=== PATIENT | female | born 1935 | race Caucasian/White ===

== ENCOUNTER 2017-06-04 12:15 | Inpatient (IN) | payer MEDICARE ==
[~2017-06-04] VITALS: Ht 172.7 cm; Wt 102.2 kg
--- NOTE | ~2017-06-04 | CO ---
Unit #: [id number] #: [id number] Patient: SCOTT MEJIA [id number] [facility]. [place], [place] [address] [id number] I MR#: [id number] NAME: SCOTT MEJIA. ROOM: 563 Age: 81 Sex: F Admission Date: 06/04/2017 : 1935 Attending Physician: Samson Mederos M.D. Primary Care Physician: Martina Garay M.D. CONSULTATION REPORT We were asked to see her by Dr. Guzman for pneumonia. HISTORY OF PRESENT ILLNESS Ms. Mejia is an 81-year-old female seen by me in the past with pneumonia, who now presents with shaking chills which occurred 3 days ago and again today. She developed a cough with actually blood today. Interestingly, she did complain of a left-sided chest pain either today or yesterday. She says that she woke up with shaking chills 3 days ago, felt better yesterday and then worse again today. She has very little smoking history. 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 We did PFTs in our office in 04/2014 and this was consistent with restriction. FEV1 of 1.2, 51% predicted, FVC 1.27, 41% predicted, ratio of the two is 95%. She did a video swallow back in 12/2014 and at that time, it was suggested that she use honey thick liquids and chin tilt. There was no thought at that time that she could not eat at all. It is also notable that she had a shot for pneumonia in 2012. 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 She has had a right lower lobe granuloma, history of multinodular goiter, history of lung nodule, diabetic retinopathy, depression, anxiety. 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 MEDICATIONS On admission had included azilsartan/chlorthalidone 40-12.5 daily, Klonopin 1 mg b.i.d., Mobic 15 mg daily, Toprol-XL 200 mg p.o. daily, Protonix 40 mg p.o. daily, potassium chloride 10 mEq daily, Prozac 40 mg daily, Lipitor 40 mg daily, Symbicort 160/4.5 two puffs b.i.d., Aricept 5 mg daily. ALLERGIES Pentazocine, sulfa, codeine. SOCIAL HISTORY She smoked only briefly when she was younger, almost a social type smoker only when she would go out. Unit #: [id number] #: [id number] Patient: SCOTT MEJIA FAMILY HISTORY Significant probably for lung disease in her father; although, he of stroke. SYSTEMS REVIEW She has occasional nausea. No vomiting. No diarrhea. No leg swelling. Denies skin complaints. All other systems are negative except as mentioned. PHYSICAL EXAMINATION GENERAL: She presents as an elderly female, in no acute distress. VITAL SIGNS: T-max 103 which is noted here, repeat 99.3; pulse 67; respirations 14; blood pressure 123/47. NECK: Without adenopathy. LUNGS: Reveals that her breathing is not labored. She does have a little bit of inspiratory rhonchi at right side. HEART: Irregular. ABDOMEN: Soft and bowel sounds are present. EXTREMITIES: Without edema. NEUROLOGIC: She is awake and alert. DIAGNOSTIC STUDIES LABORATORY RESULTS: Her white blood cell count is 11.2, H and H of 12.5 and 38, 163,000 platelets. BMP; BUN of 31, creatinine 1.3. Her lactic acid was only 0.9. IMAGING STUDIES: Chest x-ray to my exam reveals a nodular infiltrate midlung. This is a portable film and therefore it is really hard to say where it is. I would say it is in the right middle lobe, but there could also be some in the right upper lobe and the right lower lobe. IMPRESSION 1. Right pneumonia. I would most likely figure this is aspiration. She has choked on a piece of corn, but not in a while. Given her neck issues, she certainly is at risk and as mentioned, she has had video swallows in the past. 2. Some concern with the left-sided chest pain, but looking at her x-ray and her temperature, I think this is indeed pneumonia. 3. Hemoptysis. 4. Diabetes. 5. She does not fulfill criteria for sepsis. 6. Dysphagia. PLAN She is on Zosyn and Zithromax and I agree. We will need to be alert for any other signs of pulmonary embolism, but it is said most of the symptoms do a deep point to a pneumonia. It is notable that at one point that was back in 2013, she was on Pradaxa, but she does not seem to be on any significant anticoagulation now. Thank you very much for allowing me to participate in the care of this patient. Dictated by... Bell Moreno/joanna Unit #: [id number] #: [id number] Patient: SCOTT MEJIA Sury TD: 06/05/2017 13:57 JOB #: [id number] CONSULTATION REPORT Page 1 of 1 X Moise Mckeon MD CONSULTATION REPORT
--- NOTE | ~2017-06-04 | DS ---
Unit #: [id number] #: [id number] Patient: SCOTT MEJIA [id number] [place], [place] [address] [id number] I MR#: [id number] NAME: SCOTT MEJIA. ROOM: 563 Age: 81 Sex: F Admission Date: 06/04/2017 : 1935 Discharge Date: 06/07/2017 Attending Physician: Samson Mederos M.D. Primary Care Physician: Martina Garay M.D. DISCHARGE SUMMARY REASON FOR ADMISSION Hemoptysis. HISTORY OF PRESENT ILLNESS/HOSPITAL COURSE The patient is a very pleasant 81-year-old female with an underlying history of hypertension, diabetes, COPD, atrial fibrillation not on chronic anticoagulation secondary to chronic deconditioning and/or frequent falls, who presented secondary to hemoptysis. She underwent a chest x-ray in the emergency room, which showed dense infiltrates in the right middle and lower lobe. Subsequently, she was admitted secondary to multifocal pneumonia. Routinely, she is followed by Dr. Aisha Gordon of pulmonary services and therefore we placed consultation to Pulmonary. They continued to follow the patient through her hospital course. She underwent routine laboratory studies including a D-dimer, which did come back elevated at 1359 secondary to elevated creatinine. This prompted an ultrasound of her lower extremities as well as a V/Q scan. Ultrasound of lower extremity did not reveal any occult DVT. V/Q scan initial read was read as low probability. She was appropriately placed on IV antibiotics while here. Her blood cultures were otherwise unremarkable through hospital course. Today, at time of discharge, her white count currently stands at 6.3, hemoglobin of 11.4. At rest, she requires approximately 2 L of O2, which is her baseline and approximately 3 L with ambulation, which again is her baseline. At the present time, the patient is clinically stable for discharge home. At time of discharge, her creatinine is currently 0.9 with a GFR of 59.6. Her Mobic will be discontinued at time of discharge. It is requested that she continue taking Tylenol on a p.r.n. basis for arthritis. Moving forward, she was advised to avoid nephrotoxic medications. Her blood pressure medication regimen has been altered appropriately secondary to avoid renal insufficiency. Please see below for appropriate changes. She will be given a prescription for Augmentin 875 mg p.o. b.i.d. x10 days at time of discharge, and she has been instructed to follow up with Dr. Gordon as an outpatient in approximately 2 to 3 weeks. Also note, speech therapy services were consulted secondary to concern for aspiration as well as chronic deconditioning and prior history of Unit #: [id number] #: [id number] Patient: SCOTT MEJIA dementia. They did recommend current diet; however, they did recommend crushing medications in applesauce or nectar with double swallow and clear throat as needed during swallowing mechanism. From their standpoint, the patient was cleared for diet. Discussion as well as plans were reviewed with the patient. She expressed understanding and agreement. She will be discharged home in stable condition. She has been instructed to follow up with her PCP in approximately 7 days. FINAL DISCHARGE DIAGNOSES 1. Multifocal pneumonia. 2. Hemoptysis with no episodes while here in the hospital. 3. Anxiety/depression. 4. Benign essential tremor. 5. History of atrial fibrillation, not on chronic anticoagulation. 6. Dementia. 7. Hyperlipidemia. 8. Acute kidney injury on admission, likely on chronic kidney disease, stage 3. 9. Prior history of gastroesophageal reflux disease. 10. 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 The patient uses walker at home. DISCHARGE MEDICATIONS Symbicort 160/4.5 two puffs b.i.d.; Tylenol 650 mg p.o. q.6 p.r.n.; Prozac 40 mg p.o. daily; Mirapex 0.5 mg p.o. q.a.m., new medication started this hospital admission secondary to benign essential tremor; Klonopin 1 mg p.o. b.i.d.; Toprol-XL 200 mg p.o. daily; Aricept 5 mg p.o. q.h.s.; Lipitor 40 mg p.o. q.h.s.; Protonix 40 mg p.o. daily; Klor-Con 10 mEq p.o. daily; Norvasc 5 mg p.o. daily; Augmentin 875 mg p.o. b.i.d. x10 days. DISCHARGE CONDITION Stable. DISCHARGE DISPOSITION Home. Dictated by... Bell Astudillo/alysal TD: 06/09/2017 03:22 JOB #: [id number] DISCHARGE SUMMARY Page 1 of 1 X Samson Mederos MD DISCHARGE SUMMARY
--- NOTE | ~2017-06-04 | NM69 ---
[facility] A Service [facility] RADIOLOGY TEXT RESULTS PATIENT: SCOTT MEJIA LOCATION: [facility] 563- : 34 UNIT #: [id number] AGE: [address]: Samson Mederos MD SEX: F ORDER DR: [id number] [facility] [address] [place], [place] [address] [id number] I MR#: [id number] Acc #: [id number] NAME: SCOTT MEJIA. : 1935 SEX: F STUDY DATE/TIME: 06/05/2017 12:23 UNIT: [facility] ROOM: [facility] STUDY DESCRIPTION: NM Pulm Vent and Perf Attending Physician: Samson Mederos M.D. Ordering Physician: Samson Mederos M.D. Primary Care Physician: Martina Garay M.D. MEDICAL IMAGING REPORT This report is preliminary unless electronic signature is present EXAM Ventilation-perfusion scan. INDICATIONS Shortness of air for 1 week. Elevated D-dimer. COPD. COMPARISON Chest radiograph, 06/05/2017. FINDINGS 31.6 mCi telecommunications technician 99m DTPA was inhaled for the ventilation portion of the examination. There is patchy distribution of radiotracer throughout both lungs consistent with a history of COPD. 5.7 mCi of technetium-99m MAA was injected IV per protocol for the perfusion portion of the examination. There is matched defects within the perfusion images with the associated ventilation images. There is no ventilation-perfusion mismatch to indicate a pulmonary embolus. IMPRESSION 1. Low probability ventilation-perfusion scan for pulmonary embolus. 2. COPD. Dictated by... Simón Carias M.D. THIS IS AN ELECTRONICALLY VERIFIED REPORT Simón Carias M.D. at 06/08/2017 11:42 AM DENILSON/kacie TD: 06/07/2017 19:25 JOB #: [id number] [facility] A Service [facility] RADIOLOGY TEXT RESULTS PATIENT: SCOTT MEJIA LOCATION: [facility] 563-01 : 34 UNIT #: [id number] AGE: [address]: Samson Mederos MD SEX: F ORDER DR: MEDICAL IMAGING REPORT Page 1 of 1 COPY
--- NOTE | ~2017-06-04 | EKG ---
PATIENT: SOCTT MEJIA UNIT #: [id number] Ventricular Rate: 59 BPM Atrial Rate: 326 BPM QRS Duration: 108 ms Q-T Interval: 474 ms QTC Calculation(Bezet): 469 ms Calculated R [place]: 92 degrees Calculated T [place]: 93 degrees Diagnosis Line: Atrial fibrillation with slow ventricular response Diagnosis Line: Rightward axis Diagnosis Line: Nonspecific ST abnormality , probably digitalis Diagnosis Line: effect Diagnosis Line: Abnormal ECG Diagnosis Line: When compared with ECG of 04-JUN-2017 12:41, Diagnosis Line: (unconfirmed) Diagnosis Line: Nonspecific T wave abnormality no longer evident Diagnosis Line: in Inferior leads Diagnosis Line: Nonspecific T wave abnormality, improved in Diagnosis Line: Anterolateral leads Diagnosis Line: QT has lengthened Diagnosis Line: Confirmed by ARELIS BLACKMON MD ([id number]) on 06/06/2017 Diagnosis Line: 11:04:23 PM INTERPRETING MD: NEYMAR COUCH
--- NOTE | ~2017-06-04 | CR72 ---
[facility] A Service of [facility] RADIOLOGY TEXT RESULTS PATIENT: SCOTT MEJIA LOCATION: [place] [address] : 34 UNIT #: [id number] AGE: [address]: Samson Mederos MD SEX: F ORDER DR: [id number] [facility] [address] [place], [place] [address] [id number] I MR#: [id number] Acc #: [id number] NAME: SCOTT MEJIA. : 1935 SEX: F STUDY DATE/TIME: 06/04/2017 13:07 UNIT: [facility] ROOM: 264[address] STUDY DESCRIPTION: CR Chest Single View Portable Attending Physician: Landon Guzman M.D. Ordering Physician: Clarence Dalal D.O. Primary Care Physician: Martina Garay M.D. MEDICAL IMAGING REPORT This report is preliminary unless electronic signature is present EXAM Chest, portable; 06/04/2017, 1307 hours. CLINICAL HISTORY 81-year-old woman with 2-day history of fever, new onset of shortness of air and coughing up blood today. History of diabetes. COMPARISON 02/25/2017 FINDINGS Portable upright chest demonstrates stable mild cardiomegaly and tortuous aorta. There is diffuse airspace change in the right midlung right lung base new from the prior study likely pneumonia. Question patchy density at the left base. No effusions seen. IMPRESSION There is new, diffuse airspace change in the right midlung right lung base likely pneumonia. Question patchy left retrocardiac density which could represent multifocal pneumonia. There is no definite adenopathy or pleural effusion. Followup chest radiographs post-treatment to complete resolution is recommended. Dictated by... Jesi Pickard M.D. THIS IS AN ELECTRONICALLY VERIFIED REPORT Jesi Pickard M.D. at 06/05/2017 5:21 PM GREG/kacie TD: 06/04/2017 16:25 JOB #: [id number] [facility] A Service of [facility] & [facility] RADIOLOGY TEXT RESULTS PATIENT: SCOTT MEJIA LOCATION: [place] [address] : 34 UNIT #: [id number] AGE: [address]: Samson Mederos MD SEX: F ORDER DR: MEDICAL IMAGING REPORT Page 1 of 1 COPY
--- NOTE | ~2017-06-04 | US84 ---
[id number] [facility] [address] [place], [place] [address] [id number] MR#: [id number] Acc #: [id number] NAME: SCOTT MEJIA : 1935 SEX: F STUDY DATE/TIME: 06/05/2017 10:05 UNIT: [facility] ROOM: 563 STUDY DESCRIPTION: US LE Veins Complete Jaime Stdy Attending Physician: Samson Mederos M.D. Ordering Physician: Moise Mckeon M.D. Primary Care Physician: Martina Garay M.D. MEDICAL IMAGING REPORT This report is preliminary unless electronic signature is present EXAM Bilateral lower extremity venous duplex Doppler INDICATIONS Elevated D-dimer. Shortness of air for 2 days. COMPARISON None available. TECHNIQUE Venous ultrasound examination of both lower extremities was performed using grayscale, spectral Doppler and color flow Doppler imaging. FINDINGS The examination is negative. There is no evidence of deep venous thrombus from the groin to the lower calf bilaterally. Visualized greater saphenous veins are also patent. IMPRESSION Negative examination. No evidence of lower extremity deep venous thrombosis. Dictated by... Simón Carias M.D. THIS IS AN ELECTRONICALLY VERIFIED REPORT Simón Carias M.D. at 06/06/2017 1:24 PM DENILSON/esperanza TD: 06/06/2017 04:09 JOB #: [id number] MEDICAL IMAGING REPORT Page 1 of 1 COPY
--- NOTE | ~2017-06-04 | HP ---
Unit #: [id number] #: [id number] Patient: SCOTT MEJIA [id number] [address] [place], [place] [address] [id number] I MR#: [id number] NAME: SCOTT MEJIA. ROOM: 83[address] Age: 81 Sex: F Admission Date: 06/04/2017 : 1935 Attending Physician: Fannie Guzman M.D. Primary Care Physician: Martina Garay M.D. HISTORY AND PHYSICAL CHIEF COMPLAINT Chief complaint is coughing up blood. HISTORY OF PRESENT ILLNESS The patient is an 81-year-old female with a past medical history of atrial fibrillation not on chronic anticoagulation, diabetes, hypertension, chronic respiratory failure and possibly COPD, brought to the emergency room complaining of the coughing up blood. The patient stated the patient woke up earlier this morning and was shivering with the chills associated with the coughing. The patient was choking on the secretion and started coughing. The patient was coughing up blood and that made her to come to the hospital. Patient stated the patient has been feeling sick for the last few days and was feeling better yesterday but however today coughing up blood that made her to come to the emergency room. The patient had a chest x-ray done in the emergency room and that showed diffuse dense infiltrate in the right middle and lower lobe and left retrocardiac region concerning for multifocal pneumonia and is being admitted for the above reasons. PAST MEDICAL HISTORY History of a intractable nausea and vomiting, atrial fibrillation not on chronic anticoagulation, history of transient ischemic attack, diabetes, hypertension, tremors, right lower lobe nodule, goiter, adenopathy, depression and anxiety, chronic respiratory failure on 3 L per nasal cannula home oxygen and COPD and cognitive impairment. PAST SURGICAL HISTORY Excision of tumors bilaterally internal jugular vein, a cholecystectomy, left arm surgery, EGD. SOCIAL HISTORY The patient lives with her son. There is no tobacco, alcohol or any illicit drug abuse. FAMILY HISTORY Family history positive for vascular tumor and coronary artery disease. ALLERGIES Allergic to lactate, sulfa, codeine, pentazocine. HOME MEDICATIONS Patient is on chlorthalidone and Klonopin, Mobic, metoprolol, Protonix, Klor, Prozac, Lipitor, Symbicort, Aricept. Unit #: [id number] #: [id number] Patient: SCOTT MEJIA REVIEW OF SYMPTOMS Positive for nausea and vomiting. Positive for fever. Positive for chills. Denies any chest pain. Denies any headache and denies any dizziness and all other systems have been reviewed and are negative except as mentioned in the HPI. PHYSICAL EXAMINATION GENERAL APPEARANCE: On examination the patient is lying on a bed not in acute distress. VITAL SIGNS: Temperature 103, pulse 85, respiratory rate 18, blood pressure 125/68, sating 94% at 2 L of nasal cannula. HEAD: Atraumatic/normocephalic. HEENT: Pupils equal, round and reacting to light and accommodation. Extraocular movements are intact. Dry mucous membrane. NECK: Supple. LUNGS: Positive for rhonchi and decreased air entry at the bases. HEART: Irregular rate and rhythm. ABDOMEN: Soft, positive bowel sound. EXTREMITIES: No cyanosis. No clubbing. NEURO: Alert, awake, oriented. PSYCH: Mood and affect are appropriate. DIAGNOSTIC STUDIES LAB DATA: UA shows negative nitrites, negative leukocyte esterase. BNP is 287 and sodium 138, potassium 3.6, chloride 95, bicarb 33, glucose 161, BUN 31, creatinine 1.3, calcium 9.5, AST 20, ALT 17, alkaline phosphatase 77, albumin 4.1, lactic acid is 1, WBC 11.2, hemoglobin 12.5, hematocrit 38.5, platelets 163, INR is 1, troponin less than 0.05. IMAGING: And the chest x-ray shows right middle and lower lobe dense infiltrate and retrocardiac infiltrate concerning for multifocal pneumonia. CARDIOVASCULAR: And the EKG shows atrial fibrillation at a rate of 83 beats per minute. ASSESSMENT AND PLAN 1. Multifocal pneumonia. 2. Hemoptysis. 3. Sepsis. 4. Diabetes mellitus. Plan to admit the patient to the inpatient. Patient will continue with the IV antibiotics, continue with the sepsis protocol and check the CT of the chest and continue with the swallowing evaluation and do barium swallow to rule out the aspiration and continue with the antibiotics with a Zithromax and Zosyn and will have the pulmonary consult with Dr. Mckeon and further recommendations will follow as more lab results are available. Dictated by Bell Ortega TD: 06/04/2017 17:21 JOB #: [id number] Unit #: [id number] #: [id number] Patient: SCOTT MEJIA HISTORY AND PHYSICAL Page 1 of 1 X FANNIE GUZMAN MD HISTORY AND PHYSICAL
--- NOTE | ~2017-06-04 | CR63 ---
[facility] A Service of [facility] RADIOLOGY TEXT RESULTS PATIENT: SCOTT MEJIA LOCATION: [facility] 563-01 : 34 UNIT #: [id number] AGE: [address]: Samson Mederos MD SEX: F ORDER DR: [id number] [facility] [address] [place], [place] [address] [id number] I MR#: [id number] Acc #: [id number] NAME: SCOTT MEJIA. : 1935 SEX: F STUDY DATE/TIME: 06/05/2017 9:54 UNIT: [facility] ROOM: [facility] STUDY DESCRIPTION: CR Chest 2 View Attending Physician: Samson Mederos M.D. Ordering Physician: Moise Mckeon M.D. Primary Care Physician: Martina Garay M.D. MEDICAL IMAGING REPORT This report is preliminary unless electronic signature is present EXAM 2-view chest INDICATIONS Pneumonia. Shortness of air and cough for 4 days. FINDINGS PA and lateral views of the chest compared to 06/04/2017. The heart is enlarged. Right perihilar airspace opacities similar to the prior study. There is background COPD. No new pulmonary opacities. No pneumothorax. IMPRESSION No interval change Dictated by... Simón Carias M.D. THIS IS AN ELECTRONICALLY VERIFIED REPORT Simón Carias M.D. at 06/06/2017 1:24 PM RPC/rnr TD: 06/06/2017 03:51 JOB #: [id number] MEDICAL IMAGING REPORT Page 1 of 1 COPY
--- NOTE | ~2017-06-04 | EKG ---
PATIENT: SCOTT MEJIA UNIT #: [id number] Ventricular Rate: 83 BPM Atrial Rate: 202 BPM QRS Duration: 100 ms Q-T Interval: 352 ms QTC Calculation(Bezet): 413 ms Calculated R Williams: 68 degrees Calculated T Williams: 174 degrees Diagnosis Line: Atrial fibrillation Diagnosis Line: Nonspecific ST and T wave abnormality Diagnosis Line: Abnormal ECG Diagnosis Line: When compared with ECG of 30-AUG-2014 08:58, Diagnosis Line: ST now depressed in Anterior leads Diagnosis Line: Nonspecific T wave abnormality now evident in Diagnosis Line: Anterior leads Diagnosis Line: Confirmed by DEVON ABEBE MD ([id number]) on 06/09/2017 Diagnosis Line: 7:36:19 AM INTERPRETING MD: ANDRAE COUCH
[~2017-06-04 12:15] MED LIST: ACETAMINOPHEN PO; ALPRAZOLAM PO; ALTACE PO; ALTACE10 MG PO; ANTARA PO; ARICEPT PO; ARICEPT5 MG PO; ASPIRIN PO; ASPIRIN81 M2 PO; ASPIRIN81 MG PO; ATIVAN0.5 MG PO; AUGMENTIN875 MG PO; AVALIDE 300-12.1 TAB PO; CLONIDINE HCL0.1 MG PO; COLACE PO; CRESTOR; CRESTOR PO; CRESTOR10 MG PO; DEXALANT PO; DEXFOL PO; DIOVAN PO; EFFEXOR; EFFEXOR XR PO; EFFEXOR XR150 MG PO; ENABLEX15 MG PO; INDERAL LA PO; INDERAL20 MG PO; INNOPRAN XL PO; JANUMET 50-501 UDTAB PO; K-DUR10 MEQ PO; KCL PO; KLONOPIN PO; LASIX PO; LORAZEPAM0.5 MG PO; METFORMIN PO; MOBIC PO; MOBIC15 MG PO; NEURONTIN PO; NEURONTIN300 MG PO; PRADAXA150 MG PO; PROTONIX PO; PROZAC PO; TENORMIN25 M1 PO; TOPROL XL PO; TRIBENZOR 40-11 EAC1 PO; TRIBENZOR 40-51 EAC1 PO; VALTREX PO; VESICARE PO; VICODIN 5/1 TAB 5/50 PO; VITAMIN D31000 UNI1 PO; ZOCOR PO; ZOFRAN ODT4 MG DOB; [UNRECOGNIZED DRUG - OTHER]; [UNRECOGNIZED DRUG - OTHER] PO
[2017-06-04 13:45] LABS: BASOPHIL% 0.4 % (0-2.5); EOSINOPHIL# 0.1 X10e3 (0-0.7); EOSINOPHIL% 0.9 % (0.0-7.0); HEMATOCRIT 38.5 % (35.0-45.0); HEMOGLOBIN 12.5 gm/dL (12.0-16.0); LYMPHOCYTE# 0.5 X10e3 (1.0-3.5); LYMPHOCYTE% 4.3 % (17.0-45.0); MEAN CELL VOLUME 84.7 FL (83-96); MEAN CORPUSCULAR HEMOGLOBIN 27.6 PG (28-34); MEAN CORPUSCULAR HGB CONC 32.6 g/dL (30-36); MEAN PLATELET VOLUME 7.6 FL (6.5-11.5); MONOCYTE# 0.8 X10e3 (0-1.0); MONOCYTE% 6.8 % (3.0-12.0); NEUTROPHIL# 9.8 X10e3 (1.5-7.1); NEUTROPHIL% 87.6 % (40-75); PLATELET COUNT 163 X10e3 (140-420); RED BLOOD COUNT 4.54 X10e (3.90-5.30); RED CELL DISTRIBUTION WIDTH 14.5 % (11.0-15.5); WHITE BLOOD COUNT 11.2 X10e3 (4.0-10.5)
[2017-06-04 13:52] LABS: POC - CKMB 2.6 ng/mL (0.0-7.9); POC - TROPONIN <0.05 ng/mL (<=0.05)
[2017-06-04 13:56] LABS: PARTIAL THROMBOPLASTIN TIME 25.7 SECONDS (23.5-31.3); PROTHROMBIN TIME (PATIENT) 10.9 SECONDS (10.0-11.7)
[2017-06-04 14:01] LABS: DIFF IND NO
[2017-06-04 14:17] LABS: ALBUMIN SERUM 4.1 g/dL (3.5-5.0); BILIRUBIN, DIRECT 0.3 mg/dL (0.0-0.2); BILIRUBIN,INDIRECT 0.6 mg/dL (0.0-0.9); BILIRUBIN,TOTAL 0.9 mg/dL (0.2-2.0); BUN/CREATININE RATIO 23.84; CALCIUM SERUM 9.5 mg/dL (8.4-10.2); CREATININE SERUM 1.3 mg/dL (0.6-1.4); GLOM FILT RATE Estimated 38.2 mL/min (>60); POTASSIUM 3.6 mmol/L (3.5-5.1); PROTEIN TOTAL SERUM 7.3 g/dL (6.0-8.3)
[2017-06-04 14:31] LABS: URINE SOURCE CLEAN CATCH
[2017-06-04 14:35] LABS: URINE APPEARANCE CLEAR; URINE BILIRUBIN NEG (NEG); URINE BLOOD NEG (NEG); URINE COLOR YELLOW; URINE GLUCOSE NEG (NEG); URINE KETONE NEG (NEG); URINE LEUKOCYTE ESTERASE NEG (NEG); URINE NITRATE NEG (NEG); URINE PROTEIN NEG (NEG); URINE SPECIFIC GRAVITY 1.018 (1.003-1.035); URINE UROBILINOGEN 0.2 MG/DL (NEG)
[2017-06-04 14:40] LABS: CULTURE INDICATED? NO
[2017-06-04] MEDS ORDERED: PATIENT'S PHARMACY (14:49)
[2017-06-04] MEDS ORDERED: MOBIC PO (14:50)
[2017-06-04] MEDS ORDERED: METOPROLOL SUC200 MG PO (14:50)
[2017-06-04] MEDS ORDERED: PROTONIX PO (14:50)
[2017-06-04] MEDS ORDERED: KCL PO (14:50)
[2017-06-04] MEDS ORDERED: EDARBYCLOR 40-1 EACH PO (14:50)
[2017-06-04] MEDS ORDERED: KLONOPIN1 MG PO (14:50)
[2017-06-04] MEDS ORDERED: ARICEPT5 MG PO (15:12)
[2017-06-04] MEDS ORDERED: SYMBICORT INH (15:12)
[2017-06-04] MEDS ORDERED: PROZAC40 M1 PO (15:12)
[2017-06-04] MEDS ORDERED: LIPITOR40 MG PO (15:12)
[2017-06-04 16:22] LABS: POC - CKMB 1.3 ng/mL (0.0-7.9); POC - TROPONIN <0.05 ng/mL (<=0.05)
[2017-06-05 04:23] LABS: ARTERIAL BLOOD GAS CARBOXY HB 1.4 %sat (0.0-9.0); ARTERIAL BLOOD GAS HCO3 35.1 mmol/L; ARTERIAL BLOOD GAS MET HB 0.7 %sat (0.0-2.0); ARTERIAL BLOOD GAS pH 7.401 (7.350-7.450)
[2017-06-05 04:41] LABS: ARTERIAL BLOOD GAS PCO2 56.7 mmHg (35.0-45.0); ARTERIAL BLOOD GAS PO2 63.2 mmHg (80.0-100)
[2017-06-05 04:42] LABS: ARTERIAL BLOOD GAS ALLEN TEST NORMAL; ARTERIAL BLOOD GAS ART SITE LEFT RADIAL; ARTERIAL BLOOD GAS DELIVERY NASAL CANNULA; ARTERIAL DRAW? YES
[2017-06-05 05:20] LABS: BASOPHIL% 0.3 % (0-2.5); EOSINOPHIL# 0.2 X10e3 (0-0.7); EOSINOPHIL% 1.5 % (0.0-7.0); HEMATOCRIT 34.6 % (35.0-45.0); HEMOGLOBIN 11.6 gm/dL (12.0-16.0); LYMPHOCYTE% 9.3 % (17.0-45.0); MEAN CORPUSCULAR HEMOGLOBIN 28.3 PG (28-34); MEAN CORPUSCULAR HGB CONC 33.7 g/dL (30-36); MEAN PLATELET VOLUME 7.9 FL (6.5-11.5); MONOCYTE# 0.8 X10e3 (0-1.0); MONOCYTE% 8.1 % (3.0-12.0); NEUTROPHIL# 8.3 X10e3 (1.5-7.1); NEUTROPHIL% 80.8 % (40-75); PLATELET COUNT 143 X10e3 (140-420); RED BLOOD COUNT 4.11 X10e (3.90-5.30); RED CELL DISTRIBUTION WIDTH 14.1 % (11.0-15.5); WHITE BLOOD COUNT 10.3 X10e3 (4.0-10.5)
[2017-06-05 05:25] LABS: DIFF IND NO
[2017-06-05 05:41] LABS: BUN/CREATININE RATIO 23.63; CREATININE SERUM 1.1 mg/dL (0.6-1.4); GLOM FILT RATE Estimated 46.7 mL/min (>60); POTASSIUM 3.3 mmol/L (3.5-5.1)
[2017-06-06 05:22] LABS: HEMATOCRIT 33.8 % (35.0-45.0); HEMOGLOBIN 11.4 gm/dL (12.0-16.0); MEAN CELL VOLUME 84.6 FL (83-96); MEAN CORPUSCULAR HEMOGLOBIN 28.6 PG (28-34); MEAN CORPUSCULAR HGB CONC 33.8 g/dL (30-36); MEAN PLATELET VOLUME 7.9 FL (6.5-11.5); RED CELL DISTRIBUTION WIDTH 14.4 % (11.0-15.5); WHITE BLOOD COUNT 7.1 X10e3 (4.0-10.5)
[2017-06-06 06:31] LABS: BUN/CREATININE RATIO 18.18; CALCIUM SERUM 9.1 mg/dL (8.4-10.2); CREATININE SERUM 1.1 mg/dL (0.6-1.4); GLOM FILT RATE Estimated 46.7 mL/min (>60); POTASSIUM 3.5 mmol/L (3.5-5.1)
[2017-06-07 06:38] LABS: HEMATOCRIT 34.4 % (35.0-45.0); HEMOGLOBIN 11.4 gm/dL (12.0-16.0); MEAN CELL VOLUME 84.6 FL (83-96); MEAN CORPUSCULAR HGB CONC 33.1 g/dL (30-36); MEAN PLATELET VOLUME 7.7 FL (6.5-11.5); RED BLOOD COUNT 4.07 X10e (3.90-5.30); RED CELL DISTRIBUTION WIDTH 13.9 % (11.0-15.5); WHITE BLOOD COUNT 6.3 X10e3 (4.0-10.5)
[2017-06-07 07:15] LABS: BUN/CREATININE RATIO 17.77; CALCIUM SERUM 9.2 mg/dL (8.4-10.2); CREATININE SERUM 0.9 mg/dL (0.6-1.4); GLOM FILT RATE Estimated 59.6 mL/min (>60); POTASSIUM 3.7 mmol/L (3.5-5.1)
[2017-06-07] MEDS ORDERED: MIRAPEX PO (09:28)
[2017-06-07] MEDS ORDERED: NORVASC PO (09:30)
[2017-06-07] MEDS ORDERED: AUGMENTIN PO (09:31)
== END 2017-06-07 15:33 | disposition home health service (06) | DRG 177 ==
LOC: CED 12:15 → CEDOF 15:50 → CED 16:22 → CEDOF 16:22 → C5C 18:59
PROVIDERS: Emergency Medicine; Family Medicine; Internal Medicine; Internal Medicine Pulmonary Disease
DX: J69.0 Pneumonitis due to inhalation of food and vomit (principal); J96.22 Acute and chronic respiratory failure with hypercapnia; J96.21 Acute and chronic respiratory failure with hypoxia; N17.9 Acute kidney failure, unspecified; R04.2 Hemoptysis; E11.22 Type 2 diabetes mellitus with diabetic chronic kidney disease; R13.10 Dysphagia, unspecified; I48.2 Chronic atrial fibrillation; I10 Essential (primary) hypertension; G25.0 Essential tremor; Z99.81 Dependence on supplemental oxygen; F32.9 Major depressive disorder, single episode, unspecified; J44.9 Chronic obstructive pulmonary disease, unspecified; D64.9 Anemia, unspecified; Z86.73 Personal history of transient ischemic attack (TIA), and cerebral infarction without residual deficits; F41.9 Anxiety disorder, unspecified; Z90.49 Acquired absence of other specified parts of digestive tract; Z88.2 Allergy status to sulfonamides; E11.319 Type 2 diabetes mellitus with unspecified diabetic retinopathy without macular edema; I25.10 Atherosclerotic heart disease of native coronary artery without angina pectoris; N18.3 Chronic kidney disease, stage 3 (moderate); M62.3 Immobility syndrome (paraplegic); J18.9 Pneumonia, unspecified organism
CPT/HCPCS: 36415; 36600; 51702; 71010; 71020; 74230; 78582; 80048; 80061; 80076; 81003; 82308; 82553; 82803; 82947; 83605; 83880; 84484; 85025; 85027; 85379; 85610; 85730; 87040; 87070; 87205; 92526; 92610; 92611; 93005; 93970; 94640; 94664; 94760; 97110; 97116; 97162; 97166; 97530; 97535; 99285; A9540; A9567; G8978-GP; G8979-GP; G8987-GO; G8988-GO; G8996-GN; G8997-GN; G8998-GN; J0456; J0696; J1650; J1815; J2543